=== PATIENT | female | born 1940 | race Caucasian/White ===

== ENCOUNTER → 2018-05-15 09:23 | Outpatient (CLI) | payer OTHER, SELFPAY ==
--- NOTE | 2018-05-15 | DI.RAD.S_ITS ---
PROCEDURE: XR CERVICAL SPINE MIN 6V INDICATIONS: CERVICALGIA TECHNIQUE: 7 views of the cervical spine were acquired. COMPARISON: None. FINDINGS: Bones: No fractures or dislocations to the T1 level. No suspicious bony lesions. There is degenerative disc disease, moderate to severe C5-C6 and C6-C7, mild at C3-C4 and C4-C5. There is bilateral facet arthropathy scattered in cervical spine. On flexion and extension, there is grade 1 anterolisthesis of C2 on C3 and C3 on C4. There is preserved range of motion. Oblique images demonstrate mild/moderate foramina stenoses at C3-C4, C4-C5, C5-C6 and C6-C7 bilaterally. Soft tissues: Prevertebral soft tissues are normal in thickness. IMPRESSION: 1. Degenerative disc and facet disease in cervical spine as described. 2. There is preserved range of motion on flexion and extension. Mild spondylolisthesis is present at L2-L3 and L3-L4. 3. Mild to moderate bilateral foraminal stenosis at multiple levels. Dictated by: Jennifer Saucedo M.D. on 05/15/2018 at 10:05 Approved by: Jennifer Saucedo M.D. on 05/15/2018 at 10:09
== END ==
PROVIDERS: Visit Provider Family Medicine
DX: M50.31 Other cervical disc degeneration, high cervical region (principal); M48.02 Spinal stenosis, cervical region; M47.812 Spondylosis without myelopathy or radiculopathy, cervical region; M43.12 Spondylolisthesis, cervical region
CPT/HCPCS: 72052

== ENCOUNTER → 2021-02-02 10:58 | Outpatient (CLI) | payer MEDICARE, OTHER, SELFPAY ==
[2021-02-02 19:41] LABS: Alanine Aminotransferase 17 IU/L (<35); Albumin Globulin Ratio 1.3 (1.0-2.8); Alkaline Phosphatase 81 U/L (38-126); Aspartate Aminotransferase 26 IU/L (14-36); BUN Creatinine Ratio 15.2 (6-22); Blood Urea Nitrogen 15 mg/dL (7-17); Calcium 9.7 mg/dL (8.4-10.2); Carbon Dioxide 28 mmol/L (22-32); Chloride 106 mmol/L (98-107); Cholesterol 250 mg/dL (140-199); Estimated Glomerular Filt Rate 54.1 mL/min (>60); Glucose 102 mg/dL (80-110); HDL Cholesterol 47 mg/dL (40-60); HEMOLYSIS < 15 (0-50); LDL Cholesterol Calculated 162 mg/dL (<100); Potassium 4.4 mmol/L (3.4-5.1); Sodium 140 mmol/L (137-145); Triglycerides 206 mg/dL (35-150)
[2021-02-02 20:15] LABS: Thyroid Stimulating Hormone 4.48 uIU/mL (0.47-4.68)
[2021-02-02 20:28] LABS: Vitamin B12 363 pg/mL (239-931)
[2021-02-07 17:28] LABS: Vitamin D 25 Hydroxy (D3) 25.5 ng/mL (30.0-100.0)
== END ==
PROVIDERS: PCP Physician Assistant; Visit Provider Physician Assistant
DX: E78.5 Hyperlipidemia, unspecified (principal); E03.9 Hypothyroidism, unspecified; K13.0 Diseases of lips
CPT/HCPCS: 80053; 80061; 82306; 82607; 84443

== ENCOUNTER 2021-02-04 15:18 | Emergency (ER) | payer MEDICARE, OTHER, SELFPAY ==
[2021-02-04] VITALS (13 sets, daily range): BP systolic 118–156; BP diastolic 62–88; PULSE 65–89; RESP 14–25; TEMP 36.4; O2SAT 94–98; BMI 20.7
[2021-02-04] MEDS: SODIUM CHLORIDE 0.9% 1,000 ML 1000 ML IV (15:42)
[2021-02-04 15:54] LABS: Add Manual Diff / Slide Review NO; Basophils Absolute Auto 100 /uL (0-100); Basophils Percent Auto 0.9 % (0-2); Eosinophils Absolute Auto 300 /uL (0-450); Eosinophils Percent Auto 3.5 % (2-4); Hematocrit 41.7 % (36-46); Hemoglobin 13.8 g/dL (12.0-16.0); Lymphocytes Absolute Auto 2100 /uL (1100-4500); Lymphocytes Percent Auto 28.1 % (25-40); Mean Corpuscular HGB Conc 33.2 % (30-36); Mean Corpuscular Hemoglobin 29.7 PG (26-34); Mean Corpuscular Volume 89.6 fL (80-100); Monocytes Absolute Auto 500 /uL (0-900); Monocytes Percent Auto 7.3 % (3-14); Neutrophils Absolute Auto 4400 /uL (1500-7000); Neutrophils Percent Auto 60.2 % (50-75); Platelet Count 212 X10^3/uL (150-400); Red Blood Cell Count 4.66 X10^6/uL (4.0-5.2); Red Cell Distribution Width 14.3 % (11.6-14.8); White Blood Cell Count 7.3 X10^3/uL (4.5-11.0)
[2021-02-04 16:11] LABS: Alanine Aminotransferase 17 IU/L (<35); Albumin Globulin Ratio 1.4 (1.0-2.8); Alkaline Phosphatase 71 U/L (38-126); Aspartate Aminotransferase 27 IU/L (14-36); Bilirubin Total 0.7 mg/dL (0.2-1.3); Blood Urea Nitrogen 20 mg/dL (7-17); Calcium 9.6 mg/dL (8.4-10.2); Carbon Dioxide 21 mmol/L (22-32); Chloride 109 mmol/L (98-107); Creatine Kinase 34 U/L (30-135); Estimated Glomerular Filt Rate 53.5 mL/min (>60); Globulin 2.9 g/dL (1.7-4.1); Glucose 128 mg/dL (80-110); HEMOLYSIS < 15 (0-50); Potassium 3.9 mmol/L (3.4-5.1); Sodium 139 mmol/L (137-145); Total Protein 6.9 g/dL (6.3-8.2)
[2021-02-04 16:21] LABS: Troponin I < 0.012 ng/mL (0.01-0.034)
--- NOTE | 2021-02-04 18:43 | ED.GENADULT ---
HPI - General Adult General Chief complaint: Syncope Stated complaint: Syncopal episode,diaphoretic,+orthostatic Time Seen by Provider: 02/04/21 15:36 Source: patient and EMS Mode of arrival: EMS History of Present Illness HPI narrative: Patient is a 80-year-old female who is brought in for evaluation of a syncopal episode, feeling diaphoretic, and having positive orthostatic blood pressures per EMS. Her blood sugar was greater than 130 prior to arrival. Report was that the patient was sitting and having some wine and she has and crackers with some family members when she had an episode where she slumped forward. There was some vomiting associated with this. The patient states she does not quite remember everything that happened during this time. She did not fall. Did not hit her head. She states that prior to the event did not have chest pain or palpitations. She does state that she has not had anything to eat or drink today prior to this event. At the time of my evaluation she reported that she felt much better. She has been taking all of her medications as directed Related Data Previous Rx's Medication Instructions Recorded levothyroxine 50 mcg tablet 50 mcg PO QAM #90 tab 01/25/21 Allergies Allergy/AdvReac Type Severity Reaction Status Date / Time codeine Allergy Unknown Verified 02/04/21 15:26 Penicillins [PENICILLINS] AdvReac Mild Dizziness Verified 02/04/21 15:40 gluten AdvReac Unknown PAIN/DIARRH Verified 02/04/21 15:40 EA milk AdvReac Unknown PAIN/DIARRH Verified 02/04/21 15:40 EA Review of Systems Constitutional Constitutional: Denies fever(s) Eyes Eyes: Reports system reviewed and no additional complaints, except as documented ENT Ears, Nose, Mouth, and Throat: Reports system reviewed and no additional complaints, except as documented Cardiovascular Cardiovascular: Reports system reviewed and no additional complaints, except as documented Respiratory Respiratory: Reports system reviewed and no additional complaints, except as documented Gastrointestinal Gastrointestinal: Reports system reviewed and no additional complaints, except as documented Genitourinary Genitourinary: Reports system reviewed and no additional complaints, except as documented Musculoskeletal Musculoskeletal: Reports system reviewed and no additional complaints, except as documented Integumentary/Breasts Skin/Breast: Reports system reviewed and no additional complaints, except as documented Neurologic Neurologic: Reports as per HPI Psychiatric Psychiatric: Reports system reviewed and no additional complaints, except as documented Endocrine Endocrine: Reports system reviewed and no additional complaints, except as documented Hematologic/Lymphatic On Anticoagulants: No Allergic/Immunologic Allergic/Immunologic: Reports system reviewed and no additional complaints, except as documented Patient History Medical History History of anemia Post-menopausal Screening for breast cancer Screening for diabetes mellitus Surgical History (Updated 01/31/21 @ 09:37 by Debi Elizabeth CMA) History of colon resection Social History Smoking Status: Never smoker Smoking Status: Never smoker alcohol intake frequency: holidays/special occasions only Substance Use Type: does not use Exam Initial Vital Signs Initial Vital Signs: Vital Signs Pulse Rate 67 02/04/21 15:26 Respiratory Rate 14 02/04/21 15:26 Blood Pressure 141/78 H 02/04/21 15:26 Pulse Oximetry 95 02/04/21 15:26 Const General: cooperative, healthy appearing, comfortable and well developed [facility] Head: normal to inspection and normocephalic Eyes General: appearance normal, both eyes and all related structures EOM: EOM intact bilaterally Neck Neck: normal visual inspection Resp Effort & Inspection: normal respiratory effort Auscultation: clear to auscultation bilaterally Cardio Rate: regular rate Rhythm: regular rhythm GI Inspection: normal to inspection Palpation: soft General: bladder normal to palpation Bimanual Exam- Vagina & Uterus: bladder normal to palpation Skin General: no rashes or lesions noted Neuro General: patient alert, patient awake, patient oriented x3 and moves all extremities Cranial Nerves: CN's II-XI intact bilaterally Cognition: normal cognition Speech: speech normal Motor: muscle tone normal throughout Sensory Exam: no sensory deficits noted Extrem General: normal to inspection and capillary refill normal Psych Appearance: grossly normal and well kempt Course Orders Ordered: Discontinued Medications Sodium Chloride (Normal Saline 0.9%) 1,000 mls @ 1,000 mls/hr IV BOLUS ONE Stop: 02/04/21 16:35 Last Infusion: 02/04/21 17:07 Dose: 0 mls/hr Documented by: JUAN JOSE Admin: 02/04/21 15:42 Dose: 1,000 mls/hr Documented by: JUAN JOSE Vital Signs Vital signs: Vital Signs - 8 hr 02/04/21 15:26 02/04/21 15:31 02/04/21 16:00 Temperature 97.5 F L Pulse Rate 67 66 69 Pulse Rate [Orthostatic Lying] Pulse Rate [Orthostatic Sitting] Pulse Rate [Orthostatic Standing] Respiratory Rate 14 14 Blood Pressure 141/78 H 141/78 H 131/65 Blood Pressure [Orthostatic Lying] Blood Pressure [Orthostatic Sitting] Blood Pressure [Orthostatic Standing] Pulse Oximetry 95 95 98 02/04/21 16:30 02/04/21 17:00 02/04/21 17:30 Temperature Pulse Rate 66 67 66 Pulse Rate [Orthostatic Lying] Pulse Rate [Orthostatic Sitting] Pulse Rate [Orthostatic Standing] Respiratory Rate 14 25 H 20 Blood Pressure 118/64 128/62 129/69 Blood Pressure [Orthostatic Lying] Blood Pressure [Orthostatic Sitting] Blood Pressure [Orthostatic Standing] Pulse Oximetry 96 97 96 02/04/21 17:53 02/04/21 17:54 02/04/21 17:59 Temperature Pulse Rate 79 82 82 Pulse Rate [Orthostatic Lying] Pulse Rate [Orthostatic Sitting] Pulse Rate [Orthostatic Standing] Respiratory Rate Blood Pressure 139/82 139/82 156/88 H Blood Pressure [Orthostatic Lying] Blood Pressure [Orthostatic Sitting] Blood Pressure [Orthostatic Standing] Pulse Oximetry 95 94 02/04/21 18:00 02/04/21 18:10 Temperature Pulse Rate 89 Pulse Rate [Orthostatic Lying] 76 Pulse Rate [Orthostatic Sitting] 78 Pulse Rate [Orthostatic Standing] 84 Respiratory Rate Blood Pressure Blood Pressure [Orthostatic Lying] 129/69 Blood Pressure [Orthostatic Sitting] 139/82 Blood Pressure [Orthostatic Standing] 156/88 H Pulse Oximetry Medical Decision Making Lab Data Lab results reviewed: Yes I reviewed the patient's lab results. Result diagrams: 02/04/21 15:30 02/04/21 15:30 Labs: Lab Results 02/04/21 02/04/21 Range/Units 15:30 15:30 WBC 7.3 (4.5-11.0) X10^3/uL RBC 4.66 (4.0-5.2) X10^6/uL Hgb 13.8 (12.0-16.0) g/dL Hct 41.7 (36-46) % MCV 89.6 (80-100) fL MCH 29.7 (26-34) PG MCHC 33.2 (30-36) % RDW 14.3 (11.6-14.8) % Plt Count 212 (150-400) X10^3/uL Neut % (Auto) 60.2 (50-75) % Lymph % (Auto) 28.1 (25-40) % [place] % (Auto) 7.3 (3-14) % Eos % (Auto) 3.5 (2-4) % Baso % (Auto) 0.9 (0-2) % Neut # (Auto) 4400 (4606-7608) /uL Lymph # (Auto) 2100 (2099-2998) /uL [place] # (Auto) 500 (0-900) /uL Eos # (Auto) 300 (0-450) /uL Baso # (Auto) 100 (0-100) /uL Sodium 139 (137-145) mmol/L Potassium 3.9 (3.4-5.1) mmol/L Chloride 109 H (98-107) mmol/L Carbon Dioxide 21 L (22-32) mmol/L BUN 20 H (7-17) mg/dL Creatinine 1.00 (0.52-1.04) mg/dL Estimated GFR 53.5 L (>60) mL/min BUN/Creatinine Ratio 20.0 (6-22) Glucose 128 H (80-110) mg/dL Calcium 9.6 (8.4-10.2) mg/dL Total Bilirubin 0.7 (0.2-1.3) mg/dL AST 27 (14-36) IU/L ALT 17 (<35) IU/L Alkaline Phosphatase 71 (38-126) U/L Total Creatine Kinase 34 (30-135) U/L CK-MB (CK-2) TNP CK-MB (CK-2) Rel Index TNP Troponin I < 0.012 (0.01-0.034) ng/mL Total Protein 6.9 (6.3-8.2) g/dL Albumin 4.0 (3.5-5.0) g/dL Globulin 2.9 (1.7-4.1) g/dL Albumin/Globulin Ratio 1.4 (1.0-2.8) Point of Care Testing Glucose POC 128 Urine Dip Bedside Urine Glucose Negative Bedside Urine Bilirubin - Negative Bedside Urine Ketone - Negative Urine Specific [place] 1.020 Bedside Urine Occult Blood - Negative Bedside Urine pH 6.0 Bedside Urine Protein - Negative Bedside Urine Urobilinogen - Negative Bedside Urine Nitrite - Negative Bedside Urine Leukocytes - Negative Esterase Point of care testing: Point of Care Testing Glucose POC 128 Urine Dip Bedside Urine Glucose Negative Bedside Urine Bilirubin - Negative Bedside Urine Ketone - Negative Urine Specific [place] 1.020 Bedside Urine Occult Blood - Negative Bedside Urine pH 6.0 Bedside Urine Protein - Negative Bedside Urine Urobilinogen - Negative Bedside Urine Nitrite - Negative Bedside Urine Leukocytes - Negative Esterase ECG Data Attestation: I personally reviewed and interpreted this ECG as follows: Interpretation: Sinus rhythm Ventricular rate is 67 Normal axis Normal QRS normal QTC No ST T wave changes MDM Narrative Medical decision making narrative: Patient has a normal exam and is back to normal per her report. Labs and EKG are unremarkable. Vital signs are unremarkable. She did receive fluids. Low suspicion for seizure given her symptoms today. Low suspicion for CVA or TIA. Considered cardiac arrhythmia however her EKG and labs are all unremarkable and she states she did not feel like her heart was beating faster beating slow is skipping beats prior to the event. This could potentially been a vasovagal verses a orthostatic issue. She states that she has not had much to drink today and she was orthostatic. Feel patient could be discharged home without further workup. She was given strict return precautions and follow-up instructions. She expressed understanding and agreement. Discharge Plan Departure Patient Disposition: Home Clinical Impression: Syncope, Vomiting Instructions: DI for Syncope in Adults (Fainting) Activity Restrictions/Additional Instructions: I do recommend that you take it easy for the next couple days. Be sure to eat and drink okay balanced diet. Increase your fluid intake. Contact your primary doctor on Saturday for a follow-up. Continue all of your medications as directed. Return to the emergency department for any new or worsening symptoms Prescriptions: No Action levothyroxine 50 mcg tablet 50 mcg PO QAM Qty: 90 RF: 0 Referrals: Laura Vinson PA-C [Primary Care Provider] -
== END 2021-02-04 19:13 | disposition home or self-care (01) ==
PROVIDERS: Emergency Medicine; Emergency Provider Emergency Medicine; PCP Physician Assistant
DX: R55 Syncope and collapse (principal); R11.10 Vomiting, unspecified
CPT/HCPCS: 36415; 80053; 81003; 82550; 82962; 84484; 85025; 93005; 93010; 96360; 99284

== ENCOUNTER 2021-03-20 19:08 | Emergency (ER) | payer MEDICARE, OTHER, SELFPAY ==
[2021-03-20 19:11] VITALS: BP 165/81; PULSE 75; RESP 18; TEMP 36.8; O2SAT 99
--- NOTE | 2021-03-20 20:54 | PC.NURSE ---
Patient had shingles in her 20s and endorses that this feels very similar to that event: she states she feels a sharp stinging feeling that encircles her mid-thigh. She took 3 aspirin, 3 ibuprofen twice today with good relief but is concerned because it keeps occurring.
--- NOTE | 2021-03-20 21:59 | ED.EXTPRO ---
HPI - Extremity Problem General Chief complaint: Extremity Problem,Nontraumatic Stated complaint: LEFT LEG PAIN Time Seen by Provider: 03/20/21 21:59 Source: patient Mode of arrival: Ambulatory Limitations: no limitations History of Present Illness HPI Narrative: This is a 80 old female who woke today with left leg pain that she describes as sort of tingling sharp sudden sensations on the skin mostly on the anterior leg and on the side. Patient states it feels very similar to when she had shingles in her 20s. She did not have shingles on her leg in the past it was on her right chest. Patient has not appreciated any skin changes. She has not had any loss of sensation. She does not any redness, warmth or swelling patient has had any injuries. No low back pain. She is able to ambulate normally. Nothing seems to worsen or exacerbate her symptoms. She did take some aspirin and ibuprofen at home which was somewhat helpful but is likely wearing off. Her only medication is levothyroxine daily. She has an allergy to penicillin. No recent surgeries. No tobacco, alcohol or illicit. No long distance travel. Patient does not have any family history of blood clots. Related Data Previous Rx's Medication Instructions Recorded levothyroxine 50 mcg tablet 50 mcg PO QAM #90 tab 01/25/21 acyclovir 800 mg tablet 800 mg PO 5XD 7 Days #35 tab 03/20/21 gabapentin 300 mg capsule 300 mg PO TID #30 cap 03/20/21 Allergies Allergy/AdvReac Type Severity Reaction Status Date / Time codeine Allergy Unknown Verified 02/04/21 15:26 Penicillins [PENICILLINS] AdvReac Mild Dizziness Verified 02/04/21 15:40 gluten AdvReac Unknown PAIN/DIARRH Verified 02/04/21 15:40 EA milk AdvReac Unknown PAIN/DIARRH Verified 02/04/21 15:40 EA Review of Systems Review of Systems ROS Unobtainable: All systems reviewed & are unremarkable except as noted in HPI and below Patient History Medical History History of anemia Post-menopausal Screening for breast cancer Screening for diabetes mellitus Surgical History History of colon resection Social History Smoking Status: Never smoker Smoking Status: Never smoker alcohol intake frequency: holidays/special occasions only Substance Use Type: does not use Exam Narrative Exam Narrative: GENERAL: Alert and oriented x three, female in mild distress. HEENT: Head normocephalic, atraumatic, EOMI, pupils reactive, face symmetric, moist mucous membranes NECK: Supple, full range of motion CARDIOVASCULAR: Regular rate and rhythm without murmurs, rubs or gallops. RESPIRATORY: Breath sounds equal bilaterally, no wheezes rales or rhonchi. ABDOMEN: Soft, nontender. Normoactive bowel sounds all 4 quadrants. No guarding or rebound, rigidity, no mass : No CVA tenderness BACK: No cervical, thoracic or lumbar vertebral point tenderness. Patient has normal range of motion. EXTREMITIES: Normal range of motion, no clubbing or edema. Neurovascularly intact. No swelling. Normal sensation. No skin changes. 5/5 muscle strength. 2+ dorsalis pedis and tibialis. Normal sensation throughout. NEUROLOGICAL: Cranial nerves II through XII grossly intact. Moving all extremities SKIN: Warm, dry, no petechiae, no rashes or lesions. Initial Vital Signs Initial Vital Signs: Vital Signs Temperature 98.2 F 03/20/21 19:11 Pulse Rate 75 03/20/21 19:11 Respiratory Rate 18 03/20/21 19:11 Blood Pressure 165/81 H 03/20/21 19:11 Pulse Oximetry 99 03/20/21 19:11 Course Vital Signs Vital signs: Vital Signs - 8 hr 03/20/21 22:35 Pulse Rate 66 Respiratory Rate 18 Blood Pressure 135/76 Pulse Oximetry 96 MDM - Extremity (Nontraumatic) MDM Narrative Medical decision making narrative: This is a 80-year-old female comes with complaint of left cutaneous pain with no other skin changes, recent trauma or signs of infection. Patient describes it is very similar to when she had shingles in the past. Should visit tingly sharp pains. Patient does not have any changes consistent with shingles in terms of skin but her symptoms are suspicious. We also discussed possibly could be paresthesias or new pain secondary to lumbar sciatica. My suspicion for DVT, cellulitis or infection or other traumatic injury is significantly lower. We did discuss ultrasound but patient defers. Patient was given prescription for gabapentin which she can take for pain. If she had appreciates changes to the skin consistent with blisters or vesicles she can initiate acyclovir or follow-up. As she lives on [facility] and is quite difficult for her to return to the emergency department for repeat evaluation prescription was given to the patient. Discharge Plan Departure Patient Disposition: Home Clinical Impression: Acute pain of left thigh Instructions: DI for Leg Pain Activity Restrictions/Additional Instructions: Follow-up with your physician/provider for recheck. If you develop a rash with small blisters or appearing similar to your prior episode of shingles I would recommend starting the acyclovir. You may go ahead and start gabapentin 1 tablet every 8 hours for pain. You may take Tylenol up to a 1000 mg every 8 hours with this medication and ibuprofen up to 800 mg every 8 hours. Prescription sent to [facility] on [address]. There is a wide differential for possible causes of your symptoms. My suspicion for blood clot is low and after discussion we have not done an ultrasound today. Back pain or nerve pain is a possibility, early shingles without rash yet formed is also a possibility as well as several other possibilities. I do recommend that you follow-up for recheck. Please return for fevers, warmth, swelling of the leg, bruising or ecchymosis, new numbness, loss of sensation, weakness or other new or concerning symptoms. Prescriptions: New acyclovir 800 mg tablet 800 mg PO 5XD 7 Days Qty: 35 RF: 0 gabapentin 300 mg capsule 300 mg PO TID Qty: 30 RF: 0 No Action levothyroxine 50 mcg tablet 50 mcg PO QAM Qty: 90 RF: 0 Referrals: Laura Vinson PA-C [Primary Care Provider] -
[2021-03-20 22:35] VITALS: BP 135/76; PULSE 66; RESP 18; O2SAT 96
== END 2021-03-20 22:37 | disposition home or self-care (01) ==
PROVIDERS: Emergency Provider Emergency Medicine; PCP Physician Assistant
DX: M79.652 Pain in left thigh (principal)
CPT/HCPCS: 99281

== ENCOUNTER → 2021-03-29 12:22 | Outpatient (CLI) | payer MEDICARE, OTHER, SELFPAY ==
--- NOTE | 2021-04-19 10:29 | PM.CARDMON.1 ---
[employer] Report Referral & Results Date Patient Seen: 03/29/21 Requesting provider: Laura Vinson Indication: Syncope Duration of monitoring (days): 14 Diary information: There were no patient events to review Data: Minimum heart rate identified was 49 beats per minute at 00:35 on 04/04/2021 Maximum sinus heart rate was 139 beats per minute at 12:24 on 04/02/2021 Maximum overall heart rate was 207 beats per minute at 15:37 on 04/08/2021 during a run of SVT Less than 1% of identified beats were ventricular or supraventricular ectopic in origin, which would classify them as rare. There were 24 runs of SVT the fastest being the 7 beat run noted above the longest lasting 20 beats at a rate of 153 beats per minute Impression: 14 day compliance monitor demonstrating very rare very brief runs of SVT otherwise no significant dysrhythmias identified on this study. No etiology for syncope identified on this study.
== END ==
PROVIDERS: PCP Physician Assistant; Referring Provider Physician Assistant; Visit Provider Physician Assistant
DX: R55 Syncope and collapse (principal)
CPT/HCPCS: 93246; 93248

== ENCOUNTER → 2022-04-25 13:09 | Outpatient (CLI) | payer MEDICARE, OTHER, SELFPAY ==
[2022-04-25 19:30] LABS: Hematocrit 40.6 % (36-46); Hemoglobin 13.7 g/dL (12.0-16.0); Mean Corpuscular HGB Conc 33.7 % (30-36); Mean Corpuscular Hemoglobin 30.1 PG (26-34); Mean Corpuscular Volume 89.4 fL (80-100); Platelet Count 222 X10^3/uL (150-400); Red Blood Cell Count 4.54 X10^6/uL (4.0-5.2); Red Cell Distribution Width 14.1 % (11.6-14.8); White Blood Cell Count 6.3 X10^3/uL (4.5-11.0)
[2022-04-25 19:50] LABS: Free T4, Direct Thyroxine 1.29 ng/dL (0.78-2.19)
[2022-04-25 20:03] LABS: TSH w/ Reflex to FT4 2.84 uIU/mL (0.47-4.68)
[2022-04-25 20:09] LABS: Neutrophils Absolute Manual 4284 /uL (3000-5900); Total Cells Counted 100
[2022-04-25 20:10] LABS: RBC Morphology Normal Morphology
== END ==
PROVIDERS: PCP Family Medicine; Visit Provider Family Medicine
DX: B35.1 Tinea unguium (principal); E78.2 Mixed hyperlipidemia
CPT/HCPCS: 84439; 84443; 85025

== ENCOUNTER 2022-08-05 09:17 | Emergency (ER) | payer MEDICARE, OTHER, SELFPAY ==
[2022-08-05] VITALS (11 sets, daily range): BP systolic 163–189; BP diastolic 78–94; PULSE 61–73; RESP 20; TEMP 36.8; O2SAT 94–99; BMI 18.3
--- NOTE | 2022-08-05 09:25 | DI.RAD.S_ITS ---
PROCEDURE: XR HAND RT MIN 3V INDICATIONS: pain, fall TECHNIQUE: 3 views of the hand(s) acquired. COMPARISON: None. FINDINGS: Bones: Acute oblique fracture through right metacarpal shaft is seen with slight lateral displacement at fracture site and overlapping. Carpal bones are normally aligned. No suspicious bony lesions. Soft tissues: No suspicious soft tissue calcifications. IMPRESSION: Slightly displaced oblique fracture through 5th metacarpal shaft as above. Dictated by: Pierre Heath M.D. on 08/05/2022 at 10:02 Approved by: Pierre Heath M.D. on 08/05/2022 at 10:05
--- NOTE | 2022-08-05 09:25 | DI.RAD.S_ITS ---
PROCEDURE: XR WRIST RT MIN 3V INDICATIONS: hand/wrist pain TECHNIQUE: Four views of the wrist were acquired. COMPARISON: None. FINDINGS: Bones: There is a corticated fragment adjacent to the ulnar styloid which is probably a remote fracture. Mildly impacted and angulated spiral 5th metacarpal diaphyseal fracture. Fifth CMC joint appears to be in normal alignment. Mild arthritic joint space loss at the triscaphe and 1st CMC articulations. Scaphoid view: Intact scaphoid. Soft tissues: Rounded and linear dystrophic calcification in the region of the triangular fibrocartilage. No radiodense foreign body. IMPRESSION: 1. 5th metacarpal fracture. 2. 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 Dictated by: Macie Echevarria M.D. on 08/05/2022 at 9:32 Approved by: Macie Echevarria M.D. on 08/05/2022 at 9:35
--- NOTE | 2022-08-05 10:15 | ED.UPPEXIN ---
HPI - Extremity Injury (Upper) General Chief Complaint: Extremity Injury, Upper Stated Complaint: slip/trip Time Seen by Provider: 08/05/22 09:25 Source: patient and EMS Mode of arrival: EMS Limitations: no limitations History of Present Illness HPI narrative: This is an 81-year-old female with hypothyroidism who was boarding the [place] to [facility] when she slipped and fell on the rubber matting which was icy. Patient landed on her right hand, she states she was carrying some having bags. She denies hitting her head, no neck or back pain, no chest pain or shortness of breath. She denies any hip or pelvic pain. Patient denies any numbness or tingling in her fingers. She has bruising and pain over the lateral 5th metatarsal region of her right hand. Patient denies any nausea vomiting, no other GI or urinary symptoms. She denies any numbness tingling or weakness. She does have pain with motion movement or trying to make a fist of the right hand. She is right-hand dominant. 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 Patient states her only medication is levothyroxine. She states she had a colon resection for 3 polyps 1 of which was precancerous. No tobacco, occasional alcohol, none today, no illicit. She lives on [facility]. Dr. Jones is her primary care. Patient lives independently with her sister. She ambulates independently without walker or cane. Related Data Previous Rx's Medication Instructions Recorded gabapentin 300 mg capsule 300 mg PO TID #30 caps 03/20/21 levothyroxine 50 mcg tablet See Rx Instructions .Route 07/25/22 .COMPLEX #90 tabs Allergies Allergy/AdvReac Type Severity Reaction Status Date / Time codeine Allergy Unknown Verified 02/04/21 15:26 Penicillins [PENICILLINS] AdvReac Mild Dizziness Verified 02/04/21 15:40 gluten AdvReac Unknown PAIN/DIARRH Verified 02/04/21 15:40 EA milk AdvReac Unknown PAIN/DIARRH Verified 02/04/21 15:40 EA Review of Systems Review of Systems ROS Unobtainable: All systems reviewed & are unremarkable except as noted in HPI and below Patient History Medical History History of anemia Post-menopausal Screening for breast cancer Screening for diabetes mellitus Surgical History History of colon resection Social History Smoking Status: Never smoker Smoking Status: Never smoker alcohol intake frequency: holidays/special occasions only Substance Use Type: does not use Exam Narrative Exam Narrative: GEN: Patient appears in mild distress. HEAD: No evidence of trauma, no raccoon/Littlejohn sign. NECK: Nontender, painless range of motion, trachea midline Negative Nexus criteria, there is no midline line tenderness, distracting injury, altered mental status, neuro deficit, recent EtOH. EYES: PERRLA, EOMI ENT: External inspection normal, trachea is midline, Nares are clear, no septal hematoma, no dental or oral injury, airway is normal and with normal occlusion, No bony tenderness RESP: Chest is nontender and has symmetric movement, no ecchymosis, breath sounds are normal no crackles, wheezes or rales CVS: Heart sounds are normal, no murmur noted, No JVD. ABG/GI: Nontender, soft, normal bowel sounds, no distention, no organomegaly, pelvic rock is negative NEURO: Oriented AOx3, neuro is grossly intact, sensation and motor is normal all 4 extremities moving, cranial nerves II through XII are intact, GCS is 15 PSYCH: Normal mood and affect SKIN: Intact, warm and dry, no crepitus and without decubitus BACK: No CVA tenderness, no vertebral tenderness, no step-off's, no crepitus EXT: Patient has bruising and swelling over the 5th metacarpal of her right hand. She has some mild bruising of the fingers but full range of motion no other bony tenderness or all 5 fingers and only tenderness is over the 5th metacarpal. Patient does not have any bony tenderness of the wrist or forearm. She does have good flexion extension she has appropriate alignment with flexion of her fingers. Sensation intact in all 5 fingers cap refill less than 2 seconds in all 5 fingers. 2+ radial pulse. Hips are nontender without any other bony tenderness of left upper extremity or bilateral lower extremities. Initial Vital Signs Initial Vital Signs: Vital Signs Pulse Rate 64 08/05/22 09:23 Blood Pressure 189/88 H 08/05/22 09:23 Pulse Oximetry 99 08/05/22 09:23 Course Orders Ordered: ED Orders 08/05/22 09:25 XR hand RT min 3V Stat XR wrist RT min 3V Stat Vital Signs Vital signs: Vital Signs - 8 hr 08/05/22 10:30 08/05/22 10:30 08/05/22 11:00 Pulse Rate 63 Blood Pressure 166/83 H 179/81 H Pulse Oximetry 97 08/05/22 11:00 08/05/22 11:30 08/05/22 11:30 Pulse Rate 63 61 Blood Pressure 168/83 H Pulse Oximetry 95 97 08/05/22 11:47 08/05/22 11:47 08/05/22 12:00 Pulse Rate 66 Blood Pressure 183/87 H 178/93 H Pulse Oximetry 94 08/05/22 12:00 08/05/22 12:30 08/05/22 12:30 Pulse Rate 61 63 Blood Pressure 163/80 H Pulse Oximetry 97 96 08/05/22 13:00 Pulse Rate 73 Blood Pressure Pulse Oximetry 96 MDM - Extremity Injury (Upper) Imaging Data Extremity x-ray #1: Radiologist's Impression: [address] [address] XRay Report Signed Patient: Lety Stuart MR#: [id number] : 1940 Acct:[id number] Age/Sex: 81 / F Date of Service: 08/05/22 Loc: ED Accession Number: [id number] ?? Procedure: XR wrist RT min 3V Ordering Provider: Brea Rondon D.O. PROCEDURE:? XR WRIST RT MIN 3V ? INDICATIONS: hand/wrist pain ? TECHNIQUE:? Four views of the wrist were acquired.? ? COMPARISON:? None. ? FINDINGS:? ? Bones:? There is a corticated fragment adjacent to the ulnar styloid which is probably a remote fracture.? Mildly impacted and angulated spiral 5th metacarpal diaphyseal fracture.? Fifth CMC joint appears to be in normal alignment.? Mild arthritic joint space loss at the triscaphe and 1st CMC articulations. ? Scaphoid view:? Intact scaphoid. ? Soft tissues:? Rounded and linear dystrophic calcification in the region of the triangular fibrocartilage.? No radiodense foreign body. ? IMPRESSION:? ? 1. 5th metacarpal fracture. ? 2. 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 ? ? Dictated by: Macie Echevarria M.D. on 08/05/2022 at 9:32 ? ? Approved by: Macie Echevarria M.D. on 08/05/2022 at 9:35?? Extremity x-ray #2: Radiologist's Impression: Close Wrist X-Ray (Signed) Macie Echevarria - 08/05/22 Hand X-Ray (Signed) Pierre Heath - 08/05/22 Cervical Spine X-Ray (Signed) Nguyễn Saucedo - 05/15/18 [address]?[place] [address] XRay Report Signed Patient: Lety Stuart MR#: [id number] : 1940 Acct:[id number] Age/Sex: 81 / F Date of Service: 08/05/22 Loc: ED Accession Number: [id number] ?? Procedure: XR hand RT min 3V Ordering Provider: Brea Rondon D.O. PROCEDURE:? XR HAND RT MIN 3V ? INDICATIONS:? pain, fall ? TECHNIQUE:? 3 views of the hand(s) acquired.? ? COMPARISON:? None. ? FINDINGS:? ? Bones:? Acute oblique fracture through right metacarpal shaft is seen with slight lateral displacement at fracture site and overlapping.? Carpal bones are normally aligned.? No suspicious bony lesions.? ? Soft tissues:? No suspicious soft tissue calcifications.? ? ? IMPRESSION:? Slightly displaced oblique fracture through 5th metacarpal shaft as above. ? ? Dictated by: Pierre Heath M.D. on 08/05/2022 at 10:02 ? ? Approved by: Pierre Heath M.D. on 08/05/2022 at 10:05?? [facility] Narrative Medical decision making narrative: This is an 81-year-old female who presents with ground level fall appears to have an isolated 5th metacarpal fracture. Overall exam is reassuring she does not appear to have any other injuries she does not take any anticoagulants, patient has tenderness over the 5th metacarpal x-ray shows slightly displaced oblique fracture patient has good alignment with flexion of her fingers and upon extension. She is neurovascularly intact. Placed in ulnar gutter splint. Discussion with Orthopedic surgery, Dr. Heath plan for ulnar gutter. Plan for follow-up outpatient with Orthopedic surgery. Patient was given referral, return precautions and all questions answered. Patient defers anything for pain beyond Tylenol ibuprofen at home. Discharge Plan Departure Patient Disposition: Home Clinical Impression: Closed fracture of 5th metacarpal Qualifiers: Encounter type: initial encounter Metacarpal location: shaft Fracture alignment: displaced Laterality: right Qualified Code(s): S62.326A - Displaced fracture of shaft of fifth metacarpal bone, right hand, initial encounter for closed fracture Instructions: DI for Boxer's Fracture Activity Restrictions/Additional Instructions: You have a fracture of the 5th metacarpal or the long bone injured hand, please follow-up with orthopedic surgery for recheck in the next week. Call tomorrow morning to set up follow-up with orthopedic surgery. You can follow with any of the surgeons at the office. There is offices in [place] and [place]. I hope you heal quickly and are able to get back to playing piano soon. Depending on how this is healing it may be conservative treatment and splinting/casting or sometimes requires surgical repair. You may take Tylenol up to a 1000 mg every 6 hours needed for pain and/or ibuprofen up to 600 mg every 6 hours. Splint Care: Keep splint clean and dry. Elevated affected body part to decrease swelling. OK to use ice pack on the affected body part. Use for 15-20 minutes each time, for 5-6x per day. If you develop worsening pain, numbness, tingling, discoloration of the affected body part, loosen the splint by loosening the CORBIN wrap, and either see your doctor for an urgent re-assessment, or return to the Emergency Department. Return to the Emergency Department for any new or worsening symptoms. Prescriptions: No Action levothyroxine 50 mcg tablet See Rx Instructions .ROUTE .COMPLEX Qty: 90 0RF Dose Instruction: TAKE ONE TABLET BY MOUTH EVERY MORNING Rx Instructions: TAKE ONE TABLET BY MOUTH EVERY MORNING gabapentin 300 mg capsule 300 mg PO TID Qty: 30 0RF Referrals: Denia Bal MD [Physician] - Yao Jones DO [Primary Care Provider] - Stand Alone Forms: Patient Portal/API
== END 2022-08-05 13:40 | disposition home or self-care (01) ==
PROVIDERS: Emergency Provider Emergency Medicine; PCP Family Medicine
DX: S62.326A Displaced fracture of shaft of fifth metacarpal bone, right hand, initial encounter for closed fracture (principal); W00.0XXA Fall on same level due to ice and snow, initial encounter; Y92.814 Boat as the place of occurrence of the external cause
CPT/HCPCS: 73110; 73130; 99281; 99283

== ENCOUNTER 2023-01-08 15:42 | Emergency (ER) | payer MEDICARE, OTHER, SELFPAY ==
[2023-01-08] VITALS (9 sets, daily range): BP systolic 148–196; BP diastolic 71–89; PULSE 68–85; RESP 16–27; TEMP 36.6; O2SAT 96–98; BMI 18.3
[2023-01-08 15:59] LABS: Add Manual Diff / Slide Review NO; Basophils Absolute Auto 100 /uL (0-100); Basophils Percent Auto 1.3 % (0-2); Eosinophils Absolute Auto 800 /uL (0-450); Eosinophils Percent Auto 8.8 % (2-4); Hematocrit 42.5 % (36-46); Hemoglobin 14.2 g/dL (12.0-16.0); Lymphocytes Absolute Auto 2200 /uL (1100-4500); Lymphocytes Percent Auto 25.7 % (25-40); Mean Corpuscular HGB Conc 33.3 % (30-36); Mean Corpuscular Volume 90.1 fL (80-100); Monocytes Absolute Auto 600 /uL (0-900); Monocytes Percent Auto 6.7 % (3-14); Neutrophils Absolute Auto 5000 /uL (1500-7000); Neutrophils Percent Auto 57.5 % (50-75); Platelet Count 238 X10^3/uL (150-400); Red Blood Cell Count 4.72 X10^6/uL (4.0-5.2); White Blood Cell Count 8.7 X10^3/uL (4.5-11.0)
--- NOTE | 2023-01-08 16:02 | DI.CT.S_ITS ---
PROCEDURE: CT ABDOMEN PELVIS W CON INDICATIONS: RLQ pain History of appendectomy TECHNIQUE: After the administration of intravenous contrast, axial sections acquired from the lung bases to the pubic symphysis. Coronal and sagittal reformats were performed. For radiation dose reduction, the following was used: automated exposure control, adjustment of mA and/or kV according to patient size. COMPARISON: None. FINDINGS: Image quality: Good Lower chest: Basal scarring/atelectasis. A pulmonary nodule is seen at the left base measuring 5 millimeters. Possible small sliding hiatal hernia. Coronary calcifications are present. Solid organs: Liver appears unremarkable. Hyperemic gallbladder with mild pericholecystic fluid, nondistended. No radiopaque gallstones. No pathologic dilation of the biliary tree or pancreatic duct. No splenomegaly. No adrenal nodules. No hydronephrosis. Vessels and lymph nodes: The main portal vein is patent. Atherosclerotic calcifications, without aortic aneurysm. No pathologic lymph nodes identified by size criteria. Bowel and peritoneum: Moderately distended stomach. There is also mild wall thickening around the pylorus. No evidence of small bowel obstruction. There is moderate fecal loading, as well as numerous colonic diverticula. Right colon suture lines. No pathologic ascites or drainable abscess. Body wall: Unremarkable Pelvis: Bladder is unremarkable. Bulky appearing uterus with numerous calcifications. Bones: Degenerative changes. No acute or suspicious osseous finding. Leftward spinal curvature. Endplate deformities, for example L1, possibly degenerative. IMPRESSION: Moderate gastric distention. There is narrowing and wall thickening at the gastro duodenal junction. Consider endoscopy correlation depending on location of symptoms. Mass, ulcer disease/inflammation, or normal peristaltic artifact can produce this appearance. No abscess or bowel obstruction. Above average fecal loading. Colonic diverticulosis. Bulky uterus with numerous calcifications, probably due to fibroids, not well assessed on CT. 5 millimeter left lung base nodule, consider optional follow-up chest CT in 1 year for high risk patients. Hyperemic gallbladder, nondistended, ultrasound could better evaluate if there is pain in the right upper quadrant. Right colonic Postsurgical changes Other findings as above.. Dictated by: Sajan Manjarrez M.D. on 01/08/2023 at 16:45 Approved by: Sajan Manjarrez M.D. on 01/08/2023 at 16:53
--- NOTE | 2023-01-08 16:09 | ED_ITS ---
HPI - Abdominal Pain <Andreina Rust PA-C - Last Filed: 01/08/23 17:39> General Chief Complaint: Abdominal Pain Stated Complaint: rt lower abd pain since yesterday Time Seen by Provider: 01/08/23 15:49 Source: patient Mode of arrival: Ambulatory History of Present Illness HPI narrative: 82-year-old female with past medical history hyperlipidemia, hypothyroidism presents to the ED with 2 days of right lower quadrant pain. Patient states the pain has been intermittent my started yesterday afternoon. Patient took ibuprofen and aspirin for it which provided relief. Patient states that she took her last dose of ibuprofen this morning, after which the pain resolved. Patient called the nurse hotline, they recommended her to come to the ED for further evaluation. Patient denies fever, chills, chest pain, shortness of breath, nausea, vomiting, dysuria, flank pain, lightheadedness, dizziness, syncope. Patient has a history of a partial colectomy, as part of which her appendix was removed. Gallbladder is intact. Related Data Previous Rx's Medication Instructions Recorded levothyroxine 50 mcg tablet See Rx Instructions .Route 10/23/22 .COMPLEX #90 tabs Allergies Allergy/AdvReac Type Severity Reaction Status Date / Time codeine Allergy Unknown Verified 02/04/21 15:26 Penicillins [PENICILLINS] AdvReac Mild Dizziness Verified 02/04/21 15:40 gluten AdvReac Unknown PAIN/DIARRH Verified 02/04/21 15:40 EA milk AdvReac Unknown PAIN/DIARRH Verified 02/04/21 15:40 EA Review of Systems <Andreina Rust PA-C - Last Filed: 01/08/23 17:39> Review of Systems ROS Unobtainable: All systems reviewed & are unremarkable except as noted in HPI and below Constitutional Constitutional: Denies chills, Denies fatigue, Denies fever(s), Denies frequent falls, Denies lethargy and Denies weakness Eyes Eyes: Denies change in vision, Denies eye discharge, Denies irritation and Denies loss of vision ENT Ears, Nose, Mouth, and Throat: Denies change in voice, Denies dizziness, Denies neck pain, Denies sore throat and Denies throat swelling Cardiovascular Cardiovascular: Denies chest pain, Denies irregular heart rhythm, Denies lightheadedness, Denies palpitations, Denies dyspnea, Denies dyspnea on exertion and Denies orthopnea Respiratory Respiratory: Denies cough, Denies dyspnea, Denies dyspnea on exertion and Denies wheezing Gastrointestinal Gastrointestinal: Reports abdominal pain, Denies change in bowel habits, Denies diarrhea, Denies nausea and Denies vomiting Genitourinary Genitourinary: Denies hematuria, Denies flank pain, Denies urinary incontinence and Denies urinary urgency Musculoskeletal Musculoskeletal: Denies back pain, Denies muscle weakness, Denies neck pain, Denies numbness and Denies tingling Integumentary/Breasts Skin/Breast: Denies pruritus, Denies erythema, Denies rash and Denies wounds Neurologic Neurologic: Denies behavioral changes, Denies confusion, Denies dizziness, Denies frequent falls, Denies loss of vision, Denies numbness, Denies tingling and Denies weakness Psychiatric Psychiatric: Denies anxiety, Denies behavioral changes, Denies confusion, Denies depression, Denies homicidal ideation and Denies suicidal ideation Endocrine Endocrine: Denies fatigue, Denies flushing and Denies palpitations Hematologic/Lymphatic Hematologic/Lymphatic: Denies easy bruising Allergic/Immunologic Allergic/Immunologic: Denies urticaria, Denies throat swelling and Denies whee zing Patient History <Andreina Rust PA-C - Last Filed: 01/08/23 17:39> Medical History History of anemia Post-menopausal Screening for breast cancer Screening for diabetes mellitus Surgical History History of colon resection Social History Smoking Status: Never smoker Smoking Status: Never smoker alcohol intake frequency: holidays/special occasions only Substance Use Type: does not use Exam <Andreina Rust PA-C - Last Filed: 01/08/23 17:39> Narrative Exam Narrative: Const General:?cooperative, healthy appearing and comfortable [facility] Head:?normal to inspection Ears:?hearing grossly normal bilaterally Nose:?external nose normal Face and sinus:?normal facial exam and sinuses nontender Mouth:?oral mucosae normal Throat:?posterior oropharynx normal Eyes General:?appearance normal, both eyes and all related structures Neck Neck:?normal visual inspection and no lymphadenopathy noted Resp Effort & Inspection:?normal respiratory effort Auscultation:?clear to auscultation bilaterally Cardio Rate:?regular rate Rhythm:?regular rhythm GI Abdomen is soft, nondistended. Abdomen is mildly tender to palpation in the right lower quadrant and left upper quadrant. Neuro General:?patient alert, patient awake and patient oriented x3 Initial Vital Signs Initial Vital Signs: Vital Signs Blood Pressure 196/89 H 01/08/23 15:47 <Little Ritter DO - Last Filed: 01/10/23 07:44> Initial Vital Signs Initial Vital Signs: Vital Signs Blood Pressure 196/89 H 01/08/23 15:47 Course <Andreina Rust PA-C - Last Filed: 01/08/23 17:39> Orders Ordered: ED Orders 01/08/23 15:50 Complete Blood Count AUTO DIFF Stat Comprehensive Metabolic Panel Stat Lipase Stat 01/08/23 16:02 CT abdomen pelvis w con Stat Vital Signs Vital signs: Vital Signs - 8 hr 01/08/23 15:49 01/08/23 15:47 01/08/23 15:52 Temperature 97.8 F Pulse Rate 85 79 Respiratory Rate 16 Blood Pressure 196/89 H 196/89 H Pulse Oximetry 98 Oxygen Delivery Method Room Air 01/08/23 15:54 01/08/23 15:54 01/08/23 16:00 Temperature Pulse Rate 78 Respiratory Rate Blood Pressure 179/84 H 153/79 H Pulse Oximetry 98 Oxygen Delivery Method 01/08/23 16:00 01/08/23 16:44 01/08/23 16:45 Temperature Pulse Rate 76 69 Respiratory Rate 27 H Blood Pressure 154/84 H Pulse Oximetry 97 97 Oxygen Delivery Method 01/08/23 16:45 01/08/23 17:00 01/08/23 17:00 Temperature Pulse Rate 69 68 Respiratory Rate 17 27 H Blood Pressure 150/79 H Pulse Oximetry 97 96 Oxygen Delivery Method 01/08/23 17:15 01/08/23 17:15 Temperature Pulse Rate 70 Respiratory Rate Blood Pressure 148/71 H Pulse Oximetry 97 Oxygen Delivery Method <DO Rolanda Campo Last Filed: 01/10/23 07:44> Orders Ordered: ED Orders 01/08/23 15:50 Complete Blood Count AUTO DIFF Stat Comprehensive Metabolic Panel Stat Lipase Stat 01/08/23 16:02 CT abdomen pelvis w con Stat Vital Signs Vital signs: Vital Signs - 8 hr 01/08/23 15:49 01/08/23 15:47 01/08/23 15:52 Temperature 97.8 F Pulse Rate 85 79 Respiratory Rate 16 Blood Pressure 196/89 H 196/89 H Pulse Oximetry 98 Oxygen Delivery Method Room Air 01/08/23 15:54 01/08/23 15:54 01/08/23 16:00 Temperature Pulse Rate 78 Respiratory Rate Blood Pressure 179/84 H 153/79 H Pulse Oximetry 98 Oxygen Delivery Method 01/08/23 16:00 01/08/23 16:44 01/08/23 16:45 Temperature Pulse Rate 76 69 Respiratory Rate 27 H Blood Pressure 154/84 H Pulse Oximetry 97 97 Oxygen Delivery Method 01/08/23 16:45 01/08/23 17:00 01/08/23 17:00 Temperature Pulse Rate 69 68 Respiratory Rate 17 27 H Blood Pressure 150/79 H Pulse Oximetry 97 96 Oxygen Delivery Method 01/08/23 17:15 01/08/23 17:15 Temperature Pulse Rate 70 Respiratory Rate Blood Pressure 148/71 H Pulse Oximetry 97 Oxygen Delivery Method MDM - Abdominal Pain <Andreina Rust PA-C - Last Filed: 01/08/23 17:39> Lab Data 01/08/23 15:50 01/08/23 15:50 Labs: Lab Results 01/08/23 01/08/23 Range/Units 15:50 15:50 WBC 8.7 (4.5-11.0) X10^3/uL RBC 4.72 (4.0-5.2) X10^6/uL Hgb 14.2 (12.0-16.0) g/dL Hct 42.5 (36-46) % MCV 90.1 (80-100) fL MCH 30.0 (26-34) PG MCHC 33.3 (30-36) % RDW 14.0 (11.6-14.8) % Plt Count 238 (150-400) X10^3/uL Neut % (Auto) 57.5 (50-75) % Lymph % (Auto) 25.7 (25-40) % [place] % (Auto) 6.7 (3-14) % Eos % (Auto) 8.8 H (2-4) % Baso % (Auto) 1.3 (0-2) % Neut # (Auto) 5000 (8537-7446) /uL Lymph # (Auto) 2200 (4978-8322) /uL [place] # (Auto) 600 (0-900) /uL Eos # (Auto) 800 H (0-450) /uL Baso # (Auto) 100 (0-100) /uL Sodium 139 (137-145) mmol/L Potassium 4.0 (3.4-5.1) mmol/L Chloride 104 (98-107) mmol/L Carbon Dioxide 30 (22-32) mmol/L BUN 19 H (7-17) mg/dL Creatinine 0.84 (0.52-1.04) mg/dL Estimated GFR > 60 (>60) mL/min BUN/Creatinine Ratio 22.6 H (6-22) Glucose 108 (80-110) mg/dL Calcium 9.3 (8.4-10.2) mg/dL Total Bilirubin 0.6 (0.2-1.3) mg/dL AST 28 (14-36) IU/L ALT 25 (<35) IU/L Alkaline Phosphatase 71 (38-126) U/L Total Protein 7.2 (6.3-8.2) g/dL Albumin 4.1 (3.5-5.0) g/dL Globulin 3.1 (1.7-4.1) g/dL Albumin/Globulin Ratio 1.3 (1.0-2.8) Lipase 43 (23-300) U/L Point of care testing: Urine Dip Bedside Urine Glucose Negative Bedside Urine Bilirubin - Negative Bedside Urine Ketone - Negative Urine Specific [place] 1.005 Bedside Urine Occult Blood - Negative Bedside Urine pH 6.0 Bedside Urine Protein - Negative Bedside Urine Urobilinogen - Negative Bedside Urine Nitrite - Negative Bedside Urine Leukocytes - Negative Esterase MDM Narrative Medical decision making narrative: 82-year-old female with past medical history hyperlipidemia, hypothyroidism presents to the ED with 2 days of right lower quadrant pain. Concern for diverticulitis versus malignancy versus constipation versus nephrolithiasis versus UTI versus other intra-abdominal pathology versus other. Will obtain labs, UA, CT abdomen pelvis. Patient declines medications in the ED since she is not currently in pain. Will reassess. Labs within normal limits UA without UTI. CT abdomen pelvis with no acute findings to explain patient's symptoms other than a significant load of stool in the colon. Discussed findings with patient. Patient agrees to return to the ED if her symptoms worsen. Patient agrees to follow-up with her PCP as soon as possible. Medical records reviewed: Yes <Little Ritter DO - Last Filed: 01/10/23 07:44> Lab Data Labs: Lab Results 01/08/23 01/08/23 Range/Units 15:50 15:50 WBC 8.7 (4.5-11.0) X10^3/uL RBC 4.72 (4.0-5.2) X10^6/uL Hgb 14.2 (12.0-16.0) g/dL Hct 42.5 (36-46) % MCV 90.1 (80-100) fL MCH 30.0 (26-34) PG MCHC 33.3 (30-36) % RDW 14.0 (11.6-14.8) % Plt Count 238 (150-400) X10^3/uL Neut % (Auto) 57.5 (50-75) % Lymph % (Auto) 25.7 (25-40) % [place] % (Auto) 6.7 (3-14) % Eos % (Auto) 8.8 H (2-4) % Baso % (Auto) 1.3 (0-2) % Neut # (Auto) 5000 (4840-0168) /uL Lymph # (Auto) 2200 (5984-3598) /uL [place] # (Auto) 600 (0-900) /uL Eos # (Auto) 800 H (0-450) /uL Baso # (Auto) 100 (0-100) /uL Sodium 139 (137-145) mmol/L Potassium 4.0 (3.4-5.1) mmol/L Chloride 104 (98-107) mmol/L Carbon Dioxide 30 (22-32) mmol/L BUN 19 H (7-17) mg/dL Creatinine 0.84 (0.52-1.04) mg/dL Estimated GFR > 60 (>60) mL/min BUN/Creatinine Ratio 22.6 H (6-22) Glucose 108 (80-110) mg/dL Calcium 9.3 (8.4-10.2) mg/dL Total Bilirubin 0.6 (0.2-1.3) mg/dL AST 28 (14-36) IU/L ALT 25 (<35) IU/L Alkaline Phosphatase 71 (38-126) U/L Total Protein 7.2 (6.3-8.2) g/dL Albumin 4.1 (3.5-5.0) g/dL Globulin 3.1 (1.7-4.1) g/dL Albumin/Globulin Ratio 1.3 (1.0-2.8) Lipase 43 (23-300) U/L Point of care testing: Urine Dip Bedside Urine Glucose Negative Bedside Urine Bilirubin - Negative Bedside Urine Ketone - Negative Urine Specific [place] 1.005 Bedside Urine Occult Blood - Negative Bedside Urine pH 6.0 Bedside Urine Protein - Negative Bedside Urine Urobilinogen - Negative Bedside Urine Nitrite - Negative Bedside Urine Leukocytes - Negative Esterase Discharge Plan Departure Patient Disposition: Home Clinical Impression: Abdominal pain Instructions: DI for Abdominal Pain-Adult Activity Restrictions/Additional Instructions: You were evaluated in the ED today for abdominal pain. Your labs, urine, CT abdomen pelvis did not show any acute findings that explain your symptoms. CT did show that you have a significant load of stool in your colon, which can sometimes cause abdominal pain. Please continue to consume fiber rich foods and lots of water. Please return to the ED if you have worsening symptoms. Please follow-up with your PCP as soon as possible. Prescriptions: No Action levothyroxine 50 mcg tablet See Rx Instructions .ROUTE .COMPLEX Qty: 90 0RF Dose Instruction: TAKE ONE TABLET BY MOUTH EVERY MORNING Rx Instructions: TAKE ONE TABLET BY MOUTH EVERY MORNING Referrals: Nacho Anders MD [Primary Care Provider] - Stand Alone Forms: Patient Portal/API <Little Ritter DO - Last Filed: 01/10/23 07:44> Cosign ED Attending Reggie Attestation: I was immediately available in the department for consultation. Documentation has been reviewed.
[2023-01-08 16:10] LABS: Alanine Aminotransferase 25 IU/L (<35); Albumin 4.1 g/dL (3.5-5.0); Albumin Globulin Ratio 1.3 (1.0-2.8); Alkaline Phosphatase 71 U/L (38-126); Aspartate Aminotransferase 28 IU/L (14-36); BUN Creatinine Ratio 22.6 (6-22); Bilirubin Total 0.6 mg/dL (0.2-1.3); Blood Urea Nitrogen 19 mg/dL (7-17); Calcium 9.3 mg/dL (8.4-10.2); Carbon Dioxide 30 mmol/L (22-32); Chloride 104 mmol/L (98-107); Estimated Glomerular Filt Rate > 60 mL/min (>60); Globulin 3.1 g/dL (1.7-4.1); Glucose 108 mg/dL (80-110); HEMOLYSIS 22 (0-50); Lipase 43 U/L (23-300); Sodium 139 mmol/L (137-145); Total Protein 7.2 g/dL (6.3-8.2)
== END 2023-01-08 17:30 | disposition home or self-care (01) ==
PROVIDERS: Emergency Medicine; Emergency Provider Student in an Organized Health Care Education/Training Program; PCP Family Medicine
DX: R10.31 Right lower quadrant pain (principal)
CPT/HCPCS: 74177; 80053; 81003; 83690; 85025; 99284; Q9967

== ENCOUNTER → 2023-05-13 13:39 | Outpatient (CLI) | payer MEDICARE, OTHER, SELFPAY ==
[2023-05-13 19:27] LABS: Add Manual Diff / Slide Review NO; Basophils Absolute Auto 100 /uL (0-100); Eosinophils Absolute Auto 500 /uL (0-450); Eosinophils Percent Auto 7.1 % (2-4); Hematocrit 43.5 % (36-46); Hemoglobin 14.5 g/dL (12.0-16.0); Lymphocytes Absolute Auto 1400 /uL (1100-4500); Lymphocytes Percent Auto 19.6 % (25-40); Mean Corpuscular HGB Conc 33.3 % (30-36); Mean Corpuscular Volume 89.8 fL (80-100); Monocytes Absolute Auto 400 /uL (0-900); Monocytes Percent Auto 5.7 % (3-14); Neutrophils Absolute Auto 4700 /uL (1500-7000); Neutrophils Percent Auto 66.6 % (50-75); Platelet Count 216 X10^3/uL (150-400); Red Blood Cell Count 4.84 X10^6/uL (4.0-5.2); Red Cell Distribution Width 13.8 % (11.6-14.8); White Blood Cell Count 7.1 X10^3/uL (4.5-11.0)
[2023-05-13 19:53] LABS: Alanine Aminotransferase 19 IU/L (<35); Albumin 3.9 g/dL (3.5-5.0); Albumin Globulin Ratio 1.4 (1.0-2.8); Alkaline Phosphatase 60 U/L (38-126); Aspartate Aminotransferase 26 IU/L (14-36); BUN Creatinine Ratio 18.8 (6-22); Bilirubin Total 0.7 mg/dL (0.2-1.3); Blood Urea Nitrogen 18 mg/dL (7-17); Calcium 9.5 mg/dL (8.4-10.2); Carbon Dioxide 30 mmol/L (22-32); Chloride 102 mmol/L (98-107); Estimated Glomerular Filt Rate 59 mL/min (>60); Globulin 2.7 g/dL (1.7-4.1); Glucose 160 mg/dL (80-110); HEMOLYSIS < 15 (0-50); Potassium 3.9 mmol/L (3.4-5.1); Sodium 139 mmol/L (137-145); Total Protein 6.6 g/dL (6.3-8.2)
[2023-05-13 20:20] LABS: Thyroid Stimulating Hormone 3.31 uIU/mL (0.47-4.68)
[2023-05-13 20:21] LABS: Ferritin 31 ng/mL (11-264)
[2023-05-13 20:35] LABS: Vitamin B12 Reflex MMA if <400 418 pg/mL (239-931)
== END ==
PROVIDERS: PCP Family Medicine; Visit Provider Family Medicine
DX: Z86.2 Personal history of diseases of the blood and blood-forming organs and certain disorders involving the immune mechanism (principal); R42 Dizziness and giddiness; E03.9 Hypothyroidism, unspecified; R20.0 Anesthesia of skin; R20.2 Paresthesia of skin
CPT/HCPCS: 80053; 82607; 82728; 84443; 85025

== ENCOUNTER → 2023-08-08 | Outpatient (CLI) | payer MEDICARE, OTHER, SELFPAY ==
--- NOTE | 2023-08-08 10:42 | DI.RAD.S_ITS ---
Bone Density Report Name: ALBERT CAO Age: 82 Sex: Female Ethnicity: White Date of : 1940 Indication: postmenopausal; screening for osteoporosis; Referring Provider: CURTIS GARDNER Study: Bone densitometry was performed. Exam Date: August 08, 2023 Accession number: [id number] Bone Density: Region BMD T-score Z-score Classification AP Spine(L1-L4) 0.962 -0.8 2.0 Normal Femoral Neck (Left) 0.553 -2.7 -0.3 Osteoporosis Total Hip (Left) 0.662 -2.3 -0.1 Osteopenia Femoral Neck (Right) 0.620 -2.1 0.3 Osteopenia Total Hip (Right) 0.756 -1.5 0.6 Osteopenia Total Hip Mean 0.709 -1.9 0.3 Osteopenia World Health Organization criteria for BMD impression classify patients as: Normal (T-score at or above -1.0), Osteopenia (T-score between -1.0 and -2.5), or Osteoporosis (T-score at or below -2.5). 10-year Fracture Risk: FRAX not reported because: Some T-score for Spine Total or Hip Total or Femoral Neck at or below -2.5 Impression: The patient has osteoporosis, based on the Left Femoral Neck T-score. Discussion: INCREASED RISK OF FRACTURE. BONE DENSITY IS UNDESIRABLY LOW AT ONE OR MORE SKELETAL SITES, CONSISTENT WITH POSTMENOPAUSAL OSTEOPOROSIS. This patient's lowest T-score meets the World Health Organization's (WHO) criteria for osteoporosis at one or more sites (T-score -2.5 or below). In untreated patients, the risk of osteoporotic fracture increases approximately two-fold for each 1.0 SD decrease in T-score. Low bone density is not the only risk factor for fracture; also consider factors such as patient's age, frailty or poor health, risk of falling, risk of injury, previous osteoporotic fracture, family history of osteoporosis, cigarette smoking, low body weight, etc. Not everyone with low bone mineral density has osteoporosis; osteomalacia and other metabolic bone disorders should also be considered. Patients who have osteoporosis should be evaluated for specific diseases and conditions (secondary causes) that may cause or contribute to bone loss. The [place] [employer] (AACE) and National Osteoporosis Foundation (NOF) recommend pharmacologic intervention for all postmenopausal women whose T-score is in this range. The patient should follow a healthful lifestyle (good nutrition with adequate calcium and vitamin D, and appropriate weight-bearing exercise). Follow-Up: Consider a repeat BMD and Vertebral Fracture Assessment (VFA) exam in 2 years or sooner if medically necessary, to reassess this patient's status. Reported by: SUNDEEP RUIZ M.D. on 08/08/2023 11:34:00 AM.
== END ==
LOC: RAD 10:40
PROVIDERS: PCP Family Medicine; Referring Provider Family Medicine; Visit Provider Family Medicine
DX: S62.309A Unspecified fracture of unspecified metacarpal bone, initial encounter for closed fracture (principal); M81.0 Age-related osteoporosis without current pathological fracture; Z78.0 Asymptomatic menopausal state
CPT/HCPCS: 77080

== ENCOUNTER → 2024-04-20 12:56 | Outpatient (CLI) | payer MEDICARE, OTHER, SELFPAY ==
[2024-04-20 20:34] LABS: Add Manual Diff / Slide Review NO; Basophils Absolute Auto 0 /uL (0-100); Basophils Percent Auto 0.6 % (0-2); Eosinophils Absolute Auto 200 /uL (0-450); Hematocrit 44.8 % (36-46); Hemoglobin 14.7 g/dL (12.0-16.0); Lymphocytes Absolute Auto 1100 /uL (1100-4500); Lymphocytes Percent Auto 17.9 % (25-40); Mean Corpuscular HGB Conc 32.9 % (30-36); Mean Corpuscular Hemoglobin 29.9 PG (26-34); Monocytes Absolute Auto 400 /uL (0-900); Monocytes Percent Auto 6.5 % (3-14); Neutrophils Absolute Auto 4300 /uL (1500-7000); Platelet Count 270 X10^3/uL (150-400); Red Blood Cell Count 4.92 X10^6/uL (4.0-5.2); Red Cell Distribution Width 13.9 % (11.6-14.8)
[2024-04-20 20:53] LABS: Alanine Aminotransferase 16 IU/L (<35); Albumin Globulin Ratio 1.5 (1.0-2.8); Alkaline Phosphatase 73 U/L (38-126); Aspartate Aminotransferase 32 IU/L (14-36); BUN Creatinine Ratio 15.4 (6-22); Bilirubin Total 1.5 mg/dL (0.2-1.3); Blood Urea Nitrogen 16 mg/dL (7-17); Calcium 9.6 mg/dL (8.4-10.2); Carbon Dioxide 24 mmol/L (22-32); Chloride 104 mmol/L (98-107); Estimated Glomerular Filt Rate 54 mL/min (>60); Globulin 2.7 g/dL (1.7-4.1); Glucose 100 mg/dL (80-110); HEMOLYSIS 42 (0-50); Potassium 4.6 mmol/L (3.4-5.1); Sodium 135 mmol/L (137-145); Total Protein 6.7 g/dL (6.3-8.2)
[2024-04-20 21:02] LABS: Hemoglobin A1C% w Est Avg Glu 5.9 % (4.0-6.0); Vitamin D 25 Hydroxy (D3) 33.3 ng/mL (30.0-100.0)
[2024-04-20 21:05] LABS: LDL Cholesterol Direct 145 mg/dL (<100)
[2024-04-20 21:15] LABS: Thyroid Stimulating Hormone 4.17 uIU/mL (0.47-4.68)
== END ==
PROVIDERS: PCP Family Medicine; Visit Provider Family Medicine
DX: E03.9 Hypothyroidism, unspecified (principal); R73.03 Prediabetes; M81.0 Age-related osteoporosis without current pathological fracture; N18.30 Chronic kidney disease, stage 3 unspecified; E78.2 Mixed hyperlipidemia
CPT/HCPCS: 80053; 82306; 83036; 83721; 84443; 85025

== ENCOUNTER → 2024-11-18 11:00 | Outpatient (CLI) | payer MEDICARE, OTHER, SELFPAY ==
[2024-11-18 19:36] LABS: Alanine Aminotransferase 20 IU/L (<35); Albumin Globulin Ratio 1.5 (1.0-2.8); Alkaline Phosphatase 57 U/L (38-126); Aspartate Aminotransferase 30 IU/L (14-36); BUN Creatinine Ratio 13.6 (6-22); Bilirubin Direct 0.3 mg/dL (0.0-0.4); Bilirubin Total 1.1 mg/dL (0.2-1.3); Blood Urea Nitrogen 15 mg/dL (7-17); Calcium 9.4 mg/dL (8.4-10.2); Carbon Dioxide 28 mmol/L (22-32); Chloride 104 mmol/L (98-107); Estimated Glomerular Filt Rate 50 mL/min (>60); Globulin 2.7 g/dL (1.7-4.1); Glucose 129 mg/dL (70-99); HEMOLYSIS < 15 (0-50); Potassium 4.3 mmol/L (3.4-5.1); Sodium 139 mmol/L (137-145); Total Protein 6.7 g/dL (6.3-8.2)
[2024-11-18 19:51] LABS: Vitamin D 25 Hydroxy (D3) 29.9 ng/mL (30.0-100.0)
[2024-11-18 20:07] LABS: Thyroid Stimulating Hormone 3.87 uIU/mL (0.47-4.68)
== END ==
PROVIDERS: PCP Family Medicine; Visit Provider Family Medicine
DX: E03.9 Hypothyroidism, unspecified (principal); M81.0 Age-related osteoporosis without current pathological fracture; N18.30 Chronic kidney disease, stage 3 unspecified; R17 Unspecified jaundice
CPT/HCPCS: 80053; 82248; 82306; 84443

== ENCOUNTER → 2025-04-23 14:26 | Outpatient (CLI) | payer MEDICARE, OTHER, SELFPAY | PROVIDERS: PCP Family Medicine; Visit Provider Family Medicine | DX: R39.89 Other symptoms and signs involving the genitourinary system (principal); I95.9 Hypotension, unspecified | CPT/HCPCS: 87086 ==

== ENCOUNTER → 2025-05-25 12:14 | Outpatient (CLI) | payer MEDICARE, OTHER, SELFPAY ==
[2025-05-25 19:02] LABS: Hematocrit 45.2 % (36-46); Hemoglobin 15.1 g/dL (12.0-16.0); Mean Corpuscular HGB Conc 33.3 % (30-36); Mean Corpuscular Hemoglobin 29.9 PG (26-34); Mean Corpuscular Volume 89.8 fL (80-100); Platelet Count 245 X10^3/uL (150-400)
[2025-05-25 19:09] LABS: Alanine Aminotransferase 15 IU/L (<35); Albumin 4.2 g/dL (3.5-5.0); Albumin Globulin Ratio 1.5 (1.0-2.8); Alkaline Phosphatase 68 U/L (38-126); Blood Urea Nitrogen 13 mg/dL (7-17); Calcium 9.6 mg/dL (8.4-10.2); Carbon Dioxide 25 mmol/L (22-32); Chloride 103 mmol/L (98-107); Estimated Glomerular Filt Rate 58 mL/min (>60); Globulin 2.8 g/dL (1.7-4.1); Glucose 175 mg/dL (70-99); HEMOLYSIS 22 (0-50); Potassium 4.3 mmol/L (3.4-5.1); Sodium 139 mmol/L (137-145); Total Protein 7.0 g/dL (6.3-8.2)
[2025-05-25 19:24] LABS: Vitamin D 25 Hydroxy (D3) 24.2 ng/mL (30.0-100.0)
[2025-05-25 19:47] LABS: Thyroid Stimulating Hormone 4.13 uIU/mL (0.47-4.68)
[2025-05-25 20:28] LABS: Hemoglobin A1C% w Est Avg Glu 5.9 % (4.0-6.0)
== END ==
PROVIDERS: PCP Family Medicine; Visit Provider Family Medicine
DX: E03.9 Hypothyroidism, unspecified (principal); M81.0 Age-related osteoporosis without current pathological fracture; R73.9 Hyperglycemia, unspecified; N18.30 Chronic kidney disease, stage 3 unspecified; E78.2 Mixed hyperlipidemia; E55.9 Vitamin D deficiency, unspecified; R03.0 Elevated blood-pressure reading, without diagnosis of hypertension
CPT/HCPCS: 80053; 82306; 83036; 83721; 84443; 85027